=== PATIENT | female | born 1965 | race African-American/Black ===

== ENCOUNTER 2017-06-02 05:21 | Inpatient (IN) | payer MEDICARE, MEDICAID ==
[~2017-06-02] VITALS: Ht 157.5 cm; Wt 117.9 kg
[~2017-06-02 05:21] MED LIST: AMLO2.5T45 PO; LEVO50TA8 PO; VALS40TA4 PO
[2017-06-02] MEDS ORDERED: LACTATED RINGERS 1,000 ML IV SCH (06:10)
[2017-06-02] MEDS ORDERED: LIDOCAINE HCL 1%/EPI 1:200,000 30 ML VIAL ONE (06:14)
[2017-06-02] MEDS ORDERED: THROMBIN (BOVINE) 5000 UNITS/VIAL TOP ONE ×2 (06:14→06:15)
[2017-06-02] MEDS ORDERED: GELATIN SPONGE,ABSORBABLE SZ 100 ONE (06:14)
[2017-06-02] MEDS ORDERED: BACITRACIN 50,000 UNITS/VIAL ONE (06:15)
[2017-06-02] MEDS ORDERED: NORMAL SALINE 0.9% 10 ML SYR ONE (06:15)
[2017-06-02] MEDS ORDERED: FENTANYL CITRATE/PF 50MCG/ML 2ML VIAL ONE ×2 (06:58→07:58)
[2017-06-02] MEDS ORDERED: MIDAZOLAM HCL 2 MG/2 ML VIAL ONE (06:58)
[2017-06-02] MEDS ORDERED: DIPHENHYDRAMINE 50MG/ML VIAL IV PRN (07:00)
[2017-06-02] MEDS ORDERED: IPRATROPIUM/ALBUTEROL 0.5-3(2.5)MG/3ML NEB INH PRN (07:00)
[2017-06-02] MEDS ORDERED: ONDANSETRON HCL 4MG/2ML VIAL IV PRN ×2 (07:00→08:30)
[2017-06-02] MEDS ORDERED: MORPHINE SULFATE 2 MG/ML CPJ (NOT FOR IM USE) IV PRN (07:00)
[2017-06-02] MEDS ORDERED: CLONIDINE 0.1MG TABLET PO PRN (07:00)
[2017-06-02 07:13] LABS: HCG SCREEN NEGATIVE
[2017-06-02] MEDS ORDERED: HYDROMORPHONE HCL/PF 2MG/ML (OR) ONE (07:55)
[2017-06-02] MEDS ORDERED: LABETALOL HCL 20MG/4ML CARPUJECT IV PRN (08:30)
[2017-06-02] MEDS ORDERED: HYDROMORPHONE HCL/PF 2MG/ML CPJ IV PRN (08:30)
[2017-06-02] MEDS ORDERED: MEPERIDINE HCL/PF 25MG/ML CPJ IV PRN (08:30)
[2017-06-02] MEDS ORDERED: GLYCOPYRROLATE 0.2 MG/ML 2ML VIAL ONE (08:54)
[2017-06-02] MEDS ORDERED: NEOSTIGMINE METHYLSULFATE 1MG/ML 10 ML VIAL ONE (08:54)
[2017-06-02] MEDS ORDERED: P-EP-91 PO (10:01)
[2017-06-02] MEDS ORDERED: TYLENOL #3 PO (10:01)
[2017-06-02] MEDS ORDERED: LOSA100T14 PO (10:01)
[2017-06-02 11:00] VITALS: BP 101/59
[2017-06-02 12:42] VITALS: BP 101/59
[2017-06-02] MEDS ORDERED: CEFAZOLIN SODIUM 1000MG/VIAL IV SCH (14:00)
[2017-06-02] MEDS: CEFAZOLIN 1000MG PREMIX 50 ML IV SCH ×2 (14:45→21:04)
[2017-06-02] MEDS ORDERED: BISACODYL 5MG TABLET PO PRN (15:15)
[2017-06-02 16:00] VITALS: BP 101/53
[2017-06-02] MEDS: DOCUSATE SODIUM 100MG CAPSULE PO SCH (16:14)
[2017-06-02] MEDS: DEXT 5%/LACTATED RINGERS 1,000 ML IV SCH (16:16)
[2017-06-02] MEDS: HYDROCODONE/ACETAMINOPHEN 10/325MG TABLET PO PRN (16:16)
[2017-06-02 19:35] VITALS: BP 118/51
[2017-06-03 00:02] VITALS: BP 112/46
[2017-06-03] MEDS: HYDROCODONE/ACETAMINOPHEN 10/325MG TABLET PO PRN ×2 (00:04→21:20)
[2017-06-03 04:00] VITALS: BP 111/67
[2017-06-03] MEDS: DEXT 5%/LACTATED RINGERS 1,000 ML IV SCH ×3 (05:19→17:09)
[2017-06-03] MEDS: CEFAZOLIN 1000MG PREMIX 50 ML IV SCH (05:19)
[2017-06-03] MEDS: OMEPRAZOLE 20MG CAPSULE EXTENDED RELEASE PO SCH (06:19)
[2017-06-03 07:46] LABS: BASOPHILS % 0.3 % (0.0-2.0); HEMATOCRIT. 33.3 % (36.0-48.0); MEAN CORPUSCULAR HEMOGLOBIN 27.8 pg (28.0-32.0); MEAN CORPUSCULAR VOLUME 84.1 fL (81.0-99.0); MEAN PLATELET VOLUME 8.3 fl (7.4-10.4); NEUTROPHILS % 77.7 % (40.0-76.0); PLATELET 224 x1000/uL (130-400); RED BLOOD CELL COUNT 3.96 mill/uL (4.2-5.4); RED CELL DISTRIBUTION WIDTH 17.2 % (11.6-14.6)
[2017-06-03 08:00] VITALS: BP 111/61
[2017-06-03] MEDS: DOCUSATE SODIUM 100MG CAPSULE PO SCH ×2 (08:17→16:10)
[2017-06-03 08:46] LABS: CARBON DIOXIDE 26 mEq/L (21-32); CHLORIDE 108 mEq/L (98-107)
[2017-06-03] MEDS: ACETAMINOPHEN 325MG TABLET PO PRN (09:43)
[2017-06-03 12:00] VITALS: BP 111/60
[2017-06-03 16:00] VITALS: BP 127/54
[2017-06-03 20:00] VITALS: BP 113/59
[2017-06-04] VITALS: BP 166/86
[2017-06-04 04:00] VITALS: BP 111/67
[2017-06-04] MEDS: OMEPRAZOLE 20MG CAPSULE EXTENDED RELEASE PO SCH (06:49)
[2017-06-04 08:00] VITALS: BP 125/82
[2017-06-04] MEDS ORDERED: LACTULOSE 20G/30ML UDC PO SCH (09:00)
[2017-06-04] MEDS ORDERED: DOCUSATE SODIUM 100MG CAPSULE PO SCH (09:00)
[2017-06-04] MEDS: ACETAMINOPHEN 325MG TABLET PO PRN (09:37)
[2017-06-04 12:00] VITALS: BP 140/79
[2017-06-04] MEDS: HYDROCODONE/ACETAMINOPHEN 10/325MG TABLET PO PRN (14:28)
[2017-06-04 14:51] VITALS: BP 140/79
[2017-06-04] MEDS ORDERED: POLYETHYLENE GLYCOL 3350 (17GM) 1 DOSE PACK PO SCH (21:00)
== END 2017-06-04 15:40 | disposition home or self-care (01) | DRG 519 ==
LOC: OR 05:21 → 8WST 05:22
PROVIDERS: ADMIT Internal Medicine Critical Care Medicine; ATTEND Internal Medicine Critical Care Medicine
PROC: 00NY0ZZ Release Lumbar Spinal Cord, Open Approach (ICD-10-PCS; 2017-06-02)
PROC: 01NB0ZZ Release Lumbar Nerve, Open Approach (ICD-10-PCS; principal; 2017-06-02 07:00)
DX: M48.06 Spinal stenosis, lumbar region (principal); Z68.42 Body mass index [BMI] 45.0-49.9, adult; I10 Essential (primary) hypertension; E66.01 Morbid (severe) obesity due to excess calories; M48.02 Spinal stenosis, cervical region; E03.9 Hypothyroidism, unspecified; R26.9 Unspecified abnormalities of gait and mobility; K59.00 Constipation, unspecified; D64.9 Anemia, unspecified; Z86.718 Personal history of other venous thrombosis and embolism; Z82.49 Family history of ischemic heart disease and other diseases of the circulatory system
CPT/HCPCS: 36415; 72100; 80048; 84443; 84703; 85025; 86850; 86900; 88304; 88311; 93970; 95863; 95925; 95926; 97116; 97162; 97166; 97530; 97535; A4216; C1893; J0690; J1170; J2250; J2270; J2710; J3010; J3490; J7120; J7121

== ENCOUNTER → 2018-01-06 | Day surgery (SDC) | payer MEDICARE, MEDICAID ==
[~2018-01-06] MED LIST changes: +LIDOCAINE HCL/PF 1% 10 MG/ML 5ML VIAL ONE; +LOSA100T14 PO; +P-EP-91 PO; +SODIUM BICARBONATE 4% (2.4MEQ) 5ML VIAL IV ONE; +TYLENOL #3 PO
== END | disposition home or self-care (01) ==
LOC: RAD 10:26
PROVIDERS: ATTEND Internal Medicine Endocrinology, Diabetes & Metabolism
DX: E04.1 Nontoxic single thyroid nodule (principal); D64.89 Other specified anemias; I10 Essential (primary) hypertension; E03.8 Other specified hypothyroidism; E66.01 Morbid (severe) obesity due to excess calories; Z79.899 Other long term (current) drug therapy
CPT/HCPCS: 10022; 76942; 88172; 88173; J3490

== ENCOUNTER 2018-05-01 00:51 | Emergency (ER) | payer MEDICARE, MEDICAID ==
[~2018-05-01] VITALS: Ht 172.7 cm; Wt 60.0 kg
[~2018-05-01 00:51] MED LIST changes: -LIDOCAINE HCL/PF 1% 10 MG/ML 5ML VIAL ONE; -SODIUM BICARBONATE 4% (2.4MEQ) 5ML VIAL IV ONE
[2018-05-01 04:50] VITALS: BP 136/77
== END 2018-05-01 05:25 | disposition home or self-care (01) ==
LOC: ER 00:51
DX: S82.831A Other fracture of upper and lower end of right fibula, initial encounter for closed fracture (principal); S46.912A Strain of unspecified muscle, fascia and tendon at shoulder and upper arm level, left arm, initial encounter; M25.571 Pain in right ankle and joints of right foot; W01.0XXA Fall on same level from slipping, tripping and stumbling without subsequent striking against object, initial encounter; Y93.89 Activity, other specified; Y92.89 Other specified places as the place of occurrence of the external cause; I10 Essential (primary) hypertension; Z98.890 Other specified postprocedural states
CPT/HCPCS: 73030; 73590; 73600; 99284

== ENCOUNTER → 2022-04-03 | Day surgery (SDC) | payer MEDICARE, MEDICAID ==
[~2022-04-03] MED LIST changes: +LIDOCAINE HCL/PF 1% 10 MG/ML 5ML VIAL ONE; -LOSA100T14 PO; +LOSA100T32 PO; +SODIUM BICARBONATE 4% (2.4MEQ) 5ML VIAL IV ONE
== END | disposition home or self-care (01) ==
LOC: RAD 09:50
PROVIDERS: ATTEND Internal Medicine Endocrinology, Diabetes & Metabolism
DX: E04.1 Nontoxic single thyroid nodule (principal); Z79.899 Other long term (current) drug therapy; Z98.890 Other specified postprocedural states
CPT/HCPCS: 10005; 88172; J3490

== ENCOUNTER → 2023-03-25 | Outpatient (CLI) | payer MEDICARE, MEDICAID ==
[~2023-03-25] MED LIST changes: -LIDOCAINE HCL/PF 1% 10 MG/ML 5ML VIAL ONE; -LOSA100T32 PO; +LOSA100T33 PO; -SODIUM BICARBONATE 4% (2.4MEQ) 5ML VIAL IV ONE
== END | disposition home or self-care (01) ==
LOC: MRI 09:40
PROVIDERS: ATTEND Neurological Surgery
DX: M47.817 Spondylosis without myelopathy or radiculopathy, lumbosacral region (principal); M48.07 Spinal stenosis, lumbosacral region; M51.36 Other intervertebral disc degeneration, lumbar region; M50.321 Other cervical disc degeneration at C4-C5 level; M47.812 Spondylosis without myelopathy or radiculopathy, cervical region; M48.02 Spinal stenosis, cervical region
CPT/HCPCS: 72141; 72148